=== PATIENT | male | born 1970 | race Two or more races ===

== ENCOUNTER 2022-01-21 08:57 | Emergency (ER) | payer OTHER ==
[~2022-01-21] VITALS: Ht 167.6 cm; Wt 72.6 kg
== END 2022-01-21 15:31 | disposition home or self-care (01) ==
LOC: ER 08:57
DX: B34.9 Viral infection, unspecified (principal); Z20.822 Contact with and (suspected) exposure to COVID-19

== ENCOUNTER 2022-01-23 10:08 | Outpatient (CLI) | payer OTHER | END 2022-01-23 10:55 | disposition home or self-care (01) | LOC: RAD 10:08 | PROVIDERS: ATTEND Anesthesiology Pain Medicine | DX: A49.3 Mycoplasma infection, unspecified site (principal) ==

== ENCOUNTER 2022-10-28 10:11 | Emergency (ER) | payer OTHER ==
[~2022-10-28] VITALS: Ht 162.6 cm; Wt 68.0 kg
== END 2022-10-28 14:53 | disposition home or self-care (01) ==
LOC: ER 10:11
PROVIDERS: Emergency Medicine
DX: T88.7XXA Unspecified adverse effect of drug or medicament, initial encounter (principal); Y92.89 Other specified places as the place of occurrence of the external cause

== ENCOUNTER 2022-11-27 15:35 | Emergency (ER) | payer OTHER ==
[~2022-11-27] VITALS: Ht 167.6 cm; Wt 72.6 kg
== END 2022-11-27 19:43 | disposition home or self-care (01) ==
LOC: ER 15:35
DX: R05.9 Cough, unspecified (principal); Z20.822 Contact with and (suspected) exposure to COVID-19

== ENCOUNTER 2023-01-22 06:41 | Emergency (ER) | payer OTHER ==
[~2023-01-22] VITALS: Ht 165.1 cm; Wt 77.1 kg
[2023-01-22 08:39] LABS: HEMATOCRIT 43.8 % (39.0-48.0); HEMOGLOBIN 15.3 g/dL (13-16.00); MEAN CORPUSCULAR HEMOGLOBIN 32.4 pg (27.00-32.0); MEAN CORPUSCULAR HGB CONC 34.9 g/dl (32.0-36.0); PLATELET COUNT 409 K/uL (150-450); RED BLOOD COUNT 4.71 M/uL (4.00-6.00); RED CELL DISTRIBUTION WIDTH 14.1 % (11.5-14.5)
[2023-01-22] MEDS ORDERED: TUSNEL LIQUID178 ML PO (09:43)
[2023-01-22] MEDS ORDERED: DUI500 PO (09:43)
== END 2023-01-22 12:02 | disposition home or self-care (01) ==
LOC: ER 06:41
PROVIDERS: General Practice
DX: R53.81 Other malaise (principal); H66.90 Otitis media, unspecified, unspecified ear; R05.9 Cough, unspecified; Z20.822 Contact with and (suspected) exposure to COVID-19

== ENCOUNTER 2025-02-01 13:28 | Outpatient (CLI) | payer OTHER ==
[~2025-02-01 13:28] MED LIST: DUI500 PO; TUSNEL LIQUID178 ML PO
== END 2025-02-01 13:44 | disposition home or self-care (01) ==
LOC: RAD 13:28
PROVIDERS: ATTEND Anesthesiology Pain Medicine
DX: M51.27 Other intervertebral disc displacement, lumbosacral region (principal); Z01.818 Encounter for other preprocedural examination

== ENCOUNTER 2025-02-04 05:00 | Day surgery (SDC) | payer OTHER ==
[2025-02-04] MEDS ORDERED: IOVERSOL 320 MG/ML - 50 ML VIAL IV ONE (07:35)
[2025-02-04] MEDS ORDERED: BUPIVACAINE HCL/MPF 0.5% 30ML VIAL ONE (07:35)
[2025-02-04] MEDS ORDERED: DEXAMETHASONE SODIUM PHOSPHATE 4 MG/ML VIAL ONE (07:35)
[2025-02-04] MEDS ORDERED: IOHEXOL 240 mgI/ML 100ML BOTT IV ONE (07:45)
[2025-03-16] MEDS ORDERED: TIZANIDINE HCL4 MG PO (12:02)
[2025-03-16] MEDS ORDERED: NEURONTIN300 MG PO (12:02)
== END 2025-02-04 12:10 | disposition home or self-care (01) ==
LOC: CIR.AMB 05:00
PROVIDERS: ATTEND Anesthesiology Pain Medicine
DX: M51.17 Intervertebral disc disorders with radiculopathy, lumbosacral region (principal); M51.27 Other intervertebral disc displacement, lumbosacral region; I10 Essential (primary) hypertension